=== PATIENT | female | born 1935 | race Caucasian/White ===

== ENCOUNTER → 2017-11-12 | Outpatient (CLI) | payer OTHER ==
[~2017-11-12] MED LIST: ATORVASTATIN CA40 MG PO; BACLOFEN 10MG T10 M1 PO; BACLOFEN 10MG T10 MG PO; BETASERON SC; BETASERON0.3 MG/SY1 SC; CALCIUM 600 +1 EAC1 PO; CALTRATE-600 W1 EACH PO; CLARITIN5 MG PO; CLONAZEPAM 0.50.5 M1 PO; CLONAZEPAM PO; CRESTOR20 MG PO; FLEXERIL PO; HYDROCHLOROTH12.5 M1 PO; LOPRESSOR 50 MG50 M1 PO; LOPRESSOR50 PO; LOSARTAN-HCTZ1 EACH PO; MECLIZINE HCL25 M1 PO; NEURONTIN 300300 M1 PO; NEXIUM40 MG PO; NORCO 5-325 TA1 EACH PO; PRESERVISION T1 EACH PO; TRAVATAN 0.004%5 ML OP; TRAVATAN Z2.5 ML OPHTHALMIC; UNICOMPLEX M TA1 TA1 PO; VITAMINC500 PO
--- NOTE | 2017-11-20 13:16 | S ---
[address] [address] SURGICAL PATH RPT PROCEDURE Name: MONA ARAIZA [id number] Admission: 11/12/17 Date of : 35 Discharge: Report #: [id number] Path Case #: [id number] PATHOLOGY REPORT COLLECTION DATE: 11/12/2017 RECEIVED DATE: 11/12/2017 SUBMITTING PHYS: Dr. Eric Espinoza OTHER PHYS: Dr. 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 (SEE COMMENT) COMMENT: This patient was noted to have had a prior right axilla lymph node biopsy which showed high-grade non-small cell carcinoma consistent with breast ductal primary ([id number]) at which time breast tumor profile studies showed it to be negative for ER, TX, and HER-2 protein expression with a Ki-67 proliferation of 89%. The patient (after the 2011 axillary biopsy) subsequently had neoadjuvant chemotherapy and a right modified radical mastectomy showed no infiltrating or in situ neoplasia with nine axillary lymph nodes all negative ([id number]). The current tumor is histologically identical to that seen in the prior right axillary biopsy, and because of the course of events and histologic findings, a panel of properly controlled immunohistochemical stains is again performed on A1 showing the following results and supporting the diagnosis: CK7: positive ER: negative TX: negative TTF-1: negative CK20: negative GCDFP: negative Repeat HER2 testing by image analysis is pending and will be the subject of an addendum report. Discussed with Dr. Kasper at approximately 1300 on 11/13/2017. Reviewed with Dr. Rahul Garcia who agrees with the diagnosis. (CORRIE:mgr; 11/14/2017) PATHOLOGIST: Alex Malone M.D. REPORT ELECTRONICALLY SIGNED BY: Alex Malone M.D. DATE/TIME: 11/14/2017 15:21 [place] [address] SURGICAL PATH RPT PROCEDURE Name: MONA ARAIZA Room: [facility]#: [id number] Admission: 11/12/17 Date of : 35 Discharge: Report #: [id number] Path Case #: [id number] * * * * * * * * * * * * GROSS PATHOLOGY: Received in formalin labeled "Mona Araiza, Right axilla mass" and consists of 3 harrison tissue cores ranging in size a 0.2 x 0.1 cm to 0.8 x 0.1 cm. The cold ischemic time is 5 minutes. The formalin fixation time is approximately 11 hours. The specimen is totally submitted as A1. 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 INITIAL CPT CODE(S): A; 49856, 75256, 58478, 19444, 54323, 05051, 96063 Professional services performed by [facility] at [facility], [address] [place], [place] [address], [place] [address]. Technical services performed by [facility] at [address] [place] [address], [address], [place] [address]. PROCEDURE REPORT (Order Date: 11/18/2017 00:00) COMMENT: Quantitative image analysis was performed on block A1. Please see next page for scanned image of results. (AMJ 11/20/2017) PATHOLOGIST: Sumit Austin M.D. REPORT ELECTRONICALLY SIGNED BY: Sumit Austin M.D. DATE/TIME: 11/20/2017 13:15 [facility] [address] [place] [address] PHONE: [phone] DIRECTOR: Jean-Pierre Shultz M.D. * * * END OF REPORT * * *
== END | disposition home or self-care (01) ==
LOC: M.RAD 11-05 16:03
DX: C77.3 Secondary and unspecified malignant neoplasm of axilla and upper limb lymph nodes (principal); Z88.8 Allergy status to other drugs, medicaments and biological substances; Z79.899 Other long term (current) drug therapy

== ENCOUNTER → 2017-11-27 | Outpatient (CLI) | payer OTHER ==
--- NOTE | 2017-12-12 02:26 | CON ---
[address] [address] CONSULTATION Name: MARGARITA ARAIZA Room: [facility]#: [id number] Admission: 11/27/17 Attend Phys: John Casanova MD Discharge: Date of : 35 Report #: [id number] THIS REPORT FOR: //name// CC: John Kasper DO DATE OF SERVICE: 11/27/2017 [facility] RADIATION ONCOLOGY PHONE IS [phone] REFERRING PHYSICIANS: Include Rory Valdovinos MD; Tori Cortez MD and Jarrell Kasper DO PRIMARY SITE AND HISTOPATHOLOGY: The patient has a high grade non-small cell carcinoma involving the right axilla compatible with a breast cancer primary. It was estrogen receptor negative, progesterone receptor negative. HER-2/ailyn testing was being performed and an addendum was then going to be dictated. HISTORY OF PRESENT ILLNESS: The patient is an 82-year-old woman who initially underwent breast conservation therapy for ductal carcinoma in situ that involved the right breast. She completed radiation therapy on 02/09/2002. She then had a recurrence in 2011. She had an estrogen receptor negative, progesterone receptor negative and HER2/ailyn negative right breast cancer in 2011. She had clinically and histologically positive axillary lymph nodes. So she underwent a mastectomy after neoadjuvant chemotherapy, which consisted of 4 cycles of Taxotere and Cytoxan. She did well until 09/2017. At that time, she was trying to put up a Jasmny tree and felt some discomfort in the right axilla. She noted a bleeding lesion in the axilla. She went to see Dr. Valdovinos and was referred to Dr. Kasper. She had a CT-guided biopsy of the axillary mass and the pathology revealed a high grade non-small cell carcinoma, and that was on 11/12/2017. The tumor was estrogen receptor negative and progesterone receptor negative and compatible with her breast cancer primary. She is now scheduled for a PET scan on 12/02/2017. So far, she does have some discomfort there, the pain is intermittent and goes away on its own. PAST MEDICAL HISTORY AND PAST SURGICAL HISTORY: The patient had bilateral cataract repair approximately in the year 1999. She has a history of hypertension. She has multiple sclerosis which was diagnosed around 1997. She had a hemorrhoid operation around 1996. She has a history of osteoarthritis. She had skin cancer resected from her back about 3-4 years ago. She had a cervical fusion in September 1982. She had repair of a deviated septum in 1989. She had an operation on the disk in her lower back in 1984. She had a coronary artery bypass graft, which was a quadruple bypass graft in January [address] [address] CONSULTATION Name: MARGRAITA ARAIZA PATI Room: [facility]#: [id number] Admission: 11/27/17 Attend Phys: John Casanova MD Discharge: Date of : 35 Report #: [id number] MEDICATIONS: Amantadine, atorvastatin, baclofen, clonazepam, gabapentin, losartan, hydrochlorothiazide, metoprolol, Nexium, cyclobenzaprine, aspirin, Caltrate, multivitamin, PreserVision vitamin D3. ALLERGIES: LYRICA, and TAPE. GYNECOLOGIC HISTORY: The patient is 3, para 1. She is postmenopausal. FAMILY HISTORY: Grandmother had cervical cancer. Grandfather had cancer involving the spine. An aunt had cancer. SOCIAL HISTORY: She is . She does not drink or smoke cigarettes. REVIEW OF SYSTEMS: GENERAL: The patient did not have any fevers or chills. SKIN: The patient did not have any color changes or itching. LYMPH NODES: The patient did not have any enlarged or painful glands in the neck. ENDOCRINE: The patient did not have any hot or cold intolerance. HEMATOLOGY/IMMUNOLOGY: The patient did not have any anemia. MUSCULOSKELETAL: She did not have any arthritis. HEAD AND NECK: She did not have any headaches. RESPIRATORY: She did not have any shortness of breath. CARDIOVASCULAR: She did not have any palpitations. GASTROINTESTINAL: The patient did not have any nausea. NEUROLOGIC: The patient did not have any focal weakness. PHYSICAL EXAMINATION: VITAL SIGNS: Height 5 feet 8 inches, weight 169.5 pounds, blood pressure 135/86, pulse 76, respirations 20. The patient was seen with my nurse, Charlotte Ocasio present. LYMPH NODES: She had no palpable cervical or supraclavicular lymphadenopathy. She does have a firm area in the axilla that measured about 3 x 3 cm. Otherwise, the right chest wall had no other suspicious palpable masses, the left breast has no suspicious palpable masses. GENERAL/PSYCHIATRIC: The patient was alert and oriented. EYES: Pupils were equal, round, and reactive to light. Extraocular movements were intact. HEAD, EARS, NOSE, THROAT: Mouth had no visible lesions. HEART: had a regular rate and rhythm. Lungs: were clear to auscultation. ABDOMEN: Not tender. Spleen was not palpable. Liver was at the costal margin. EXTREMITIES: Had no clubbing, cyanosis or edema. NEUROLOGIC: Cranial nerves II to XII were intact. Sensation was intact. She had 01/[address] [place] [address] CONSULTATION Name: MARGARITA ARAIZA Room: [facility]#: [id number] Admission: 11/27/17 Attend Phys: John Casanova MD Discharge: Date of : 35 Report #: [id number] strength and uses a quad cane to help with her ambulation. LABORATORY DATA: From 11/21/2017, CA 27-29 was 31.4. RADIOLOGIC DATA: She had a right breast ultrasound on 11/12/2017, which showed a solid right lateral breast mass concerning for recurrent malignancy. ASSESSMENT AND PLAN: The patient has findings consistent with a recurrent breast cancer. A PET/CT scan is pending. So I would ask her to follow up with me after the PET/CT scan. Depending on the results of the PET CT scan, the treatment options may include systemic therapy, which may consist of chemotherapy. The patient is seeing her medical oncologist, Dr. Cortez to help with that treatment modality. Depending on the PET/CT scan results, the option of surgical resection versus re-radiation can be considered to control the cancer in the axillary area. The efficacy of re-radiation can be found in the journal [employer]cot[employer] and it was entitled Re-Radiation for Local Recurrent Refractory Breast Cancer and in that study they retreated about 56 patients and local control at 2 years was about 50% and appeared to be well tolerated. The patient was asked to follow up with me after her PET/CT scan and then a plan to treat her cancer can be formulated. Thank you very much for this consult. <ELECTRONICALLY SIGNED> By: John Casanova MD 12/12/17 0226 1058 2147Dakatie Casanova MD /nt
== END ==
LOC: M.RTH 01:22
DX: C50.611 Malignant neoplasm of axillary tail of right female breast (principal); Z95.1 Presence of aortocoronary bypass graft

== ENCOUNTER → 2017-12-17 | Outpatient (CLI) | payer OTHER | LOC: M.LAB 02:58 | DX: Z79.899 Other long term (current) drug therapy (principal) ==

== ENCOUNTER → 2017-12-31 | Outpatient (CLI) | payer OTHER | LOC: M.RAD 10:17 | DX: M54.41 Lumbago with sciatica, right side (principal) ==

== ENCOUNTER → 2018-03-04 | Outpatient (CLI) | payer OTHER | LOC: M.ULTRA 10:29 | DX: N63.20 Unspecified lump in the left breast, unspecified quadrant (principal); Z85.3 Personal history of malignant neoplasm of breast ==

== ENCOUNTER → 2018-04-02 | Outpatient (CLI) | payer OTHER | LOC: M.MRI 10:38 | DX: G35 Multiple sclerosis (principal); R90.82 White matter disease, unspecified; C50.919 Malignant neoplasm of unspecified site of unspecified female breast ==

== ENCOUNTER → 2018-04-17 | Outpatient (CLI) | payer OTHER | LOC: M.RAD 11:24 | DX: M47.896 Other spondylosis, lumbar region (principal); M25.551 Pain in right hip ==

== ENCOUNTER → 2018-06-06 | Outpatient (CLI) | payer OTHER ==
--- NOTE | 2018-06-15 00:21 | ONC ---
[address] [address] RADIATION ONCOLOGY NOTE Name: MARGARITA ARAIZA Room: [facility]#: [id number] Admission: 06/06/18 Attend Phys: John Casanova MD Discharge: Date of : 35 Report #: [id number] THIS REPORT FOR: //name// CC: John Kasper DATE OF SERVICE: 06/06/2018 REFERRING PHYSICIANS: Rory Valdovinos MD; Tori Cortez MD and Jarrell Kasper DO [facility] phone is [phone] PRIMARY SITE AND HISTOPATHOLOGY: The patient has a recurrent breast cancer that involved the axilla and that was resected. Then, she went on to receive chemotherapy from Dr. Cortez consisting of Xeloda and then capecitabine, and she presents for radiation therapy, part of it may be re-radiation. INTERVAL NOTE: The patient presents to be set up for radiation therapy at this time. SOCIAL HISTORY: The patient does not smoke cigarettes. REVIEW OF SYSTEMS: RESPIRATORY: Breathing was stable. She was not short of breath. MUSCULOSKELETAL: Range of motion is good in her upper extremities. PHYSICAL EXAMINATION: with my nurse, Charlotte Ocasio, present. VITAL SIGNS: the patient weighed 163.8 pounds on 06/06/2018. She was 169.5 pounds on 11/27/2017. On 06/06/2018, blood pressure 151/65, pulse 75, respirations 20, oxygen saturation 99%. LYMPH NODES: She had no palpable cervical, supraclavicular or axial lymphadenopathy. HEART: Had a regular rate and rhythm without murmur. LUNGS: were clear to auscultation. BREASTS: Right chest wall, no suspicious palpable masses and left breast had no suspicious palpable masses. ABDOMEN: Nontender. Spleen was not palpable. Liver was at the costal margin. EXTREMITIES: No clubbing, cyanosis or edema. MEDICATIONS: Include amantadine, atorvastatin, baclofen, clonazepam, gabapentin, losartan, metoprolol, Nexium, cyclobenzaprine, aspirin, Caltrate, multivitamin, PreserVision b.i.d., vitamin D3. ASSESSMENT: [place] [address] RADIATION ONCOLOGY NOTE Name: MARGARITA ARAIZA Room: [facility]#: [id number] Admission: 06/06/18 Attend Phys: John Casanova MD Discharge: Date of : 35 Report #: [id number] 1. Recurrent breast cancer- The patient was offered re-radiation to the right chest wall and regional lymph nodes. The risks, benefits, logistics of radiation therapy were discussed with the patient in detail. She gave her witnessed informed consent to proceed with radiation therapy and she will be scheduled for simulation. 2. Hypertension- The patient takes metoprolol and that is managed by her referring physicians. 3. Vitamin D levels- The patient takes vitamin D supplements that is managed by her referring physicians. Thank you for allowing me to participate in the care of this patient. <ELECTRONICALLY SIGNED> By: John Casanova MD 06/15/18 0021 1243 0227John Casanova MD /nt
== END ==
LOC: M.RTH 03:36
DX: Z08 Encounter for follow-up examination after completed treatment for malignant neoplasm (principal); I10 Essential (primary) hypertension; E55.9 Vitamin D deficiency, unspecified; C50.911 Malignant neoplasm of unspecified site of right female breast

== ENCOUNTER 2018-11-11 12:17 | Inpatient (IN) | payer OTHER ==
[~2018-11-11] VITALS: Ht 170.2 cm; Wt 73.5 kg
[2018-11-11 12:27] VITALS: BP 139/94
[2018-11-11] MEDS ORDERED: LIDODERM1 EACH TOP (12:54)
[2018-11-11] MEDS ORDERED: CYCLOBENZAPRINE5 MG PO (12:56)
[2018-11-11] MEDS ORDERED: PRESERVISION T1 EACH PO (12:58)
[2018-11-11] MEDS ORDERED: AMANTADINE100 M1 PO (12:59)
[2018-11-11] MEDS ORDERED: ASPIR 8181 MG PO (13:00)
[2018-11-11 13:08] LABS: ABSOLUTE EOSINOPHILS 0.1 thou/uL (0.0-0.7); ABSOLUTE LYMPHOCYTES 0.6 thou/uL (0.8-5.3); ABSOLUTE MONOCYTES 0.3 thou/uL (0.0-1.2); ABSOLUTE NEUTROPHILS 3.1 thou/uL (1.6-8.1); EOSINOPHILS 1.6 %; HEMATOCRIT 37.4 % (37.0-47.0); HEMOGLOBIN 12.2 gm/dL (12.0-15.0); LYMPHOCYTES 14.5 %; MCH 31.3 pg (26.0-34.0); MCHC 32.6 g/dL (28.0-37.0); MCV 96.1 fL (80.0-100.0); MONOCYTES 8.1 %; MPV 8.2 fl. (7.2-11.1); NUCLEATED RBCS 0 /100WBC; PLATELET COUNT* 167 thou/uL (150-400); POLYS 74.8 %; RBC 3.89 mil/uL (4.20-5.00); WBC 4.1 thou/uL (4.0-11.0)
[2018-11-11 13:16] LABS: PROTIME 10.5 Seconds (9.20-11.50)
[2018-11-11 13:17] LABS: ANION GAP 7 mmol/L (7-16); BUN 17 mg/dL (7-18); CALCIUM 8.9 mg/dL (8.5-10.1); CHLORIDE 104 mmol/L (98-107); CO2 28 mmol/L (21-32); CREATININE 0.8 mg/dL (0.6-1.3); GLUCOSE 152 mg/dL (70-99); POTASSIUM 3.7 mmol/L (3.5-5.1); SODIUM 139 mmol/L (136-145)
[2018-11-11] MEDS ORDERED: NITROGLYCERIN0.4 MG SUBLING (13:23)
[2018-11-11] MEDS ORDERED: NORCO 5-325 TA1 EACH PO (13:24)
[2018-11-11] MEDS ORDERED: VITAMIN E400 UNIT PO (13:25)
[2018-11-11] MEDS ORDERED: ZYRTEC10 M2 PO (13:25)
[2018-11-11 13:28] LABS: ALBUMIN 2.9 g/dL (3.4-5.0); ALKALINE PHOSPHATASE 139 U/L (46-116); LIPASE 210 U/L (73-393); MAGNESIUM 1.9 mg/dL (1.8-2.4); NT-PRO BRAIN NAT PEPTIDE 3187 pg/mL (<300); SGOT 23 U/L (15-37); SGPT 37 U/L (30-65); TOTAL BILIRUBIN 0.3 mg/dL (<0.1-1.0); TOTAL PROTEIN 6.8 g/dL (6.4-8.2); TROPONIN-I LEVEL <0.06 ng/mL (<0.06)
[2018-11-11 15:49] VITALS: BP 126/57
[2018-11-11 16:10] VITALS: BP 143/78
--- NOTE | 2018-11-11 16:21 | EKG ---
[place] [address] ELECTROCARDIOGRAM REPORT Name: MARGARITA KRUEGER Room: [address] ADM IN M.R.#: [id number] Admission: 11/11/18 Attend Phys: Mariela Win MD Discharge: Date of : 35 Report #: [id number] THIS REPORT FOR: //name// [facility] ED Test Date: 2018-11-11 Test Time: 12:34:53 Pat Name: MARGARITA ARAIZA Department: Room: [facility] Gender: F Otolaryngology Surgeon: Loli CARDOSO RN : 1935 Requested By: Mansoor Toth Order Number: [id number] MD: Rc Caruso Measurements Intervals [place] Rate: 111 P: MD: QRS: 62 QRSD: 77 T: 43 QT: 333 QTc: 453 Interpretive Statements Atrial fibrillation Anteroseptal infarct, old, possible Minimal ST depression, anterolateral leads Compared to ECG 03/19/2015 18:29:15 ST (T wave) deviation now present Sinus bradycardia no longer present Myocardial infarct finding still present Electronically Signed On 11-11-2018 16:21:27 PATCHING MACHINE OPERATOR by Rc Caruso [email or web address] <ELECTRONICALLY SIGNED> By: Rc Caruso MD, FACC 11/11/18 1621 1234 1234 Rc Caruso MD, FACC /EPI
[2018-11-11 16:30] VITALS: BP 143/78
--- NOTE | 2018-11-11 16:55 | CON ---
[address] [address] CONSULTATION Name: MARGARITA ARAIZA Room: [address] IN M.R.#: [id number] Admission: 11/11/18 Attend Phys: Mariela Win MD Discharge: Date of : 35 Report #: [id number] THIS REPORT FOR: //name// CC: DR GONZALEZ Toth DATE OF SERVICE: 11/11/2018 HISTORY OF PRESENT ILLNESS: The patient is an 83-year-old white female who was brought to the Emergency Room today after she was noted to be in atrial fibrillation. The patient had previous coronary bypass surgery in 2001 at [facility]. Echocardiogram in 2014 showed normal ejection fraction. Previous carotid Doppler study showed less than 50% stenosis. She is not very active because of multiple sclerosis. She is confined to a walker. She was doing well until recently she had an episode of chest pressure with nausea and diaphoresis. The pressure went into her back. She felt like she needed to belch. She took a nitroglycerin that seemed to help. She came to my office today. She was noted to be in AFib with a rapid response. She denied any significant palpitations or syncope. She has been short of breath. She has had no edema. ECG shows AFib, rapid response, nonspecific ST and T-wave changes. Recent CT scan of the chest showed cardiomegaly, evidence of radiation pneumonitis. LABORATORY DATA: From last summer included creatinine 0.7. TSH 1.3. IMPRESSION AND RECOMMENDATIONS: 1. Coronary artery disease. Previous bypass surgery. I suspect her chest pain was exacerbated by her atrial fibrillation. 2. Hypertension. The patient is on an ARB, diuretic and beta annie. 3. Mild carotid stenosis. 4. Multiple sclerosis. The patient confined to a walker. 5. Breast cancer. The patient treated with surgery and chemotherapy 10 years ago. Last year, she had recurrent episode of breast cancer requiring radiation therapy. 6. Hyperlipidemia. The patient is on a statin drug. 7. Atrial fibrillation. Suspect recent onset. I would recommend anticoagulation. If the patient fails to convert, she might require cardioversion and antiarrhythmic therapy. <ELECTRONICALLY SIGNED> By: Rory Coreas MD, FACC 11/11/18 1655 1222 1242Dximena Coreas MD, FACC /nt
--- NOTE | 2018-11-11 18:49 | NUR ---
PT ADMITTED TO ROOM 224 VIA CART FROM ED AT 1610. ASSESSMENT CHARTED. VSS. CARDIZEM DRIP RUNNING AT 10ML/HR. UP WITH ASSISTANCE WITH A WALKER. PAIN RATED LOW IN NECK RELIEVED WITH FLEXERILE AND LIDOCAIN PATCH. NPO AT MIDNIGHT FOR MARCIO IN THE MORNING.
[2018-11-11 19:40] VITALS: BP 132/60
[2018-11-12] VITALS (17 sets, daily range): BP systolic 93–166; BP diastolic 41–79
--- NOTE | 2018-11-12 02:28 | NUR ---
RECIEVED REPORT AND ASSUMED CARE AT 1900. FOOD STAND MANAGER IN PLACE. VITAL SIGNS STABLE. PT UP WITH ASSIST X 1. PT DENIES ANY PAIN AT THIS TIME. ASSESSMENT COMPLETED, DISCUSSED PLAN OF CARE, PT UNDERSTANDS. BED LOCK, ALARM ON AND CALL LIGHT WITHIN REACH. FALL PRECAUTIONS IN PLACE. HOURLY ROUNDING DONE AND ALL NEEDS MET. NURSING WILL CONTINUE TO MONITOR.
[2018-11-12 05:51] LABS: HEMATOCRIT 35.8 % (37.0-47.0); HEMOGLOBIN 11.5 gm/dL (12.0-15.0); MCH 31.4 pg (26.0-34.0); MCHC 32.2 g/dL (28.0-37.0); MCV 97.7 fL (80.0-100.0); MPV 8.8 fl. (7.2-11.1); RBC 3.67 mil/uL (4.20-5.00); RDW-CV 15.5 % (10.5-14.5); WBC 4.7 thou/uL (4.0-11.0)
[2018-11-12 06:18] LABS: ALBUMIN 2.7 g/dL (3.4-5.0); CALCIUM 8.8 mg/dL (8.5-10.1); CREATININE 0.7 mg/dL (0.6-1.3); MAGNESIUM 2.2 mg/dL (1.8-2.4); POTASSIUM 3.2 mmol/L (3.5-5.1); TOTAL BILIRUBIN 0.5 mg/dL (<0.1-1.0); TOTAL PROTEIN 6.2 g/dL (6.4-8.2)
--- NOTE | 2018-11-12 10:54 | EKG ---
[place] [address] ELECTROCARDIOGRAM REPORT Name: MARGARITA KRUEGER Room: [address] ADM IN M.R.#: [id number] Admission: 11/11/18 Attend Phys: Mariela Win MD Discharge: Date of : 35 Report #: [id number] THIS REPORT FOR: //name// [facility] Test Date: 2018-11-12 Test Time: 09:06:38 Pat Name: MARGARITA ARAIZA Department: Room: [address] Gender: F Visual Design Lead: : 1935 Requested By: Rory Coreas Order Number: [id number] Reading MD: Rory Coreas Measurements Intervals [place] Rate: 69 P: ID: QRS: 46 QRSD: 78 T: 51 QT: 468 QTc: 502 Interpretive Statements Atrial flutter Low voltage, extremity leads Probable septal infarct, old Prolonged QT interval Compared to ECG 11/11/2018 12:34:53 Low QRS voltage now present Prolonged QT interval now present Atrial fibrillation no longer present Myocardial infarct finding still present Electronically Signed On 11-12-2018 10:54:19 DIRECTOR SALES by Rory Coreas [email or web address] <ELECTRONICALLY SIGNED> By: Rory Coreas MD, [facility] 11/12/18 1054 0906 Rory Coreas MD, [facility] /EPI
--- NOTE | 2018-11-12 11:12 | NUR ---
MET WITH PT AND SPOUSE TO DISCUSS HOME SITUATION/DC PLANNING. PT LIVES WITH SPOUSE. SHE IS NORMALLY INDEPENDENT AND ACTIVE. HAS WALKER AND CANE SHE USES WHEN THEY GO OUT. SHE IS ABLE TO DO SOME COOKING AND CLEANING. PT HASN'T HAD HH OR BEEN TO SNF. PLANS TO RETURN HOME WITH SPOUSE AT DC. WILL FOLLOW
--- NOTE | 2018-11-12 13:18 | TEE ---
[place] [address] TRANSESOPHAGEAL ECHOCARDIOGRAM Name: MARGARITA ARAIZA Room: [address] IN [facility]#: [id number] Admission: 11/11/18 Attend Phys: Mariela Win, Discharge: Date of : 35 Date of Service: 11/12/18 1318 Report #: [id number] THIS REPORT FOR: //name// APPROVED REPORT Study performed: 11/12/2018 11:10:33 EXAM: Transesophageal Echocardiogram Patient Location: In-Patient Room #: [facility] Status: routine BSA: 1.86 HR: 70 bpm BP: 94/67 mmHg Rhythm: Atrial Fibrillation Other Information Study Quality: Excellent Indications Atrial Fibrillation Echo Enhancing Agent Indication: Rule out Shunt Agent(s) / Amount(s) Used: Agitated Saline 20 cc Procedure After obtaining informed consent, patient underwent transesophageal echo in the [employer]. Type of Sedation : General Anesthesia Sedation was administered by Anesthesiologist. Sedation start time: 1114 Case end Time: 1130 Sedation was achieved intravenously with: Transesophageal probe was inserted and advanced into esophagus without difficulty by Rory Coreas MD, [facility]. Echo enhancement indication: R/O Septal defect. Echo enhancement agent administered: Agitated Saline The MARCIO was performed without complications. Synchronized Cardioversion acheived with 200 Joules after 1 attempt(s). Rhythm following Synchronized Cardioversion: Normal Sinus Rhythm Throughout the procedure, the blood pressure, pulse oximetry, cardiac rhythm, [place] [address] TRANSESOPHAGEAL ECHOCARDIOGRAM Name: MARGARITA ARAIZA Room: [address] IN ..#: [id number] Admission: 11/11/18 Attend Phys: Mariela Win, Discharge: Date of : 35 Date of Service: 11/12/18 1318 Report #: [id number] The patient tolerated the procedure without adverse effects. Recovery from conscious sedation was uneventful and vital signs were stable. Left Ventricle The left ventricle is normal size. There is normal LV segmental wall motion. There is normal left ventricular wall thickness. Left ventricular systolic function is normal. The left ventricular ejection fraction is within the normal range. LVEF is 55-60%. Right Ventricle The right ventricle is normal size. The right ventricular systolic function is normal. Atria Left atrium is moderately dilated. No thrombus is visualized in the left atrium or appendage. Interatrial septum is intact without evidence of ASD or PFO. Right atrium is mildly dilated. Aortic Valve Mild aortic valve sclerosis. Trace aortic regurgitation. Mild aortic stenosis. Mitral Valve The mitral valve is normal in structure. Mild mitral regurgitation. No evidence of mitral valve stenosis. Tricuspid Valve The tricuspid valve is normal in structure. Mild tricuspid regurgitation. Pulmonic Valve The pulmonary valve is normal in structure. There is no pulmonic valvular regurgitation. Great Vessels The aortic root is normal in size. Pericardium There is no pericardial effusion. <Conclusion> LVEF is 55-60%. Left [place] [address] TRANSESOPHAGEAL ECHOCARDIOGRAM Name: MARGARITA PATI Room: [address]#: [id number] Admission: 11/11/18 Attend Phys: Mariela Win, Discharge: Date of : 35 Date of Service: 11/12/181317 Report #: [id number] No thrombus is visualized in the left atrium or appendage. Mild aortic stenosis. Mild mitral regurgitation. successful cardioversion of atrial fibrillation to sinus bradycardia <ELECTRONICALLY SIGNED> By: Rory Coreas MD, FACC 11/12/181317 17 17 Rory Coreas MD, FACC /INF
--- NOTE | 2018-11-12 18:18 | NUR ---
RECEIVED REPORT FROM [facility] NURSE TAYLOR. ASSUMED CARE OF PT AROUND 0730. PT A&O X4, BUT FORGETFULL. PT PLEASANT BUT ANXIOUS ABOUT BEING IN HOSPITAL. REASSURANCE GIVEN. VSS. ADMIN SECRETARY IN PLACE. PT IN AFIB THIS AM, WENT TO SIEBEL SOLUTION ARCHITECT FOR MARCIO AND CARDIOVERSION, RETURNED TO FLOOR IN SB/SR. POST PROCEDURE VITALS CHARTED. AM ASSESSMENT AND VITALS COMPLETED CHARTED. IV TO UPPER LEFT FA INFILTRATED AND WAS REMOVED. AREA WARM AND TENDER, HOT PACK APPLIED TO PT RELEIF. NEW IV STARTED TO LOWER LEFT FA IN SIEBEL [employer]UTION ARCHITECT. AT BEDSIDE MOST OF SHIFT. PT ABLE TO EAT LUNCH AND DINNER WITHOUT ISSUE. PT HOPING TO DC TOMORROW. PT CURRENTLY RESTING IN BED. FALL PRECAUTIONS IN PLACE. CALL LIGHT IS WITHIN REACH. WILL CONTINUE TO MONITOR FOR DURATION OF SHIFT.
[2018-11-13] VITALS: BP 122/61
[2018-11-13 04:00] VITALS: BP 121/55
[2018-11-13 04:50] LABS: HEMATOCRIT 34.8 % (37.0-47.0); HEMOGLOBIN 11.3 gm/dL (12.0-15.0); MCH 31.6 pg (26.0-34.0); MCHC 32.5 g/dL (28.0-37.0); MCV 97.2 fL (80.0-100.0); MPV 8.4 fl. (7.2-11.1); RBC 3.58 mil/uL (4.20-5.00); RDW-CV 15.1 % (10.5-14.5); WBC 4.7 thou/uL (4.0-11.0)
[2018-11-13 05:23] LABS: CREATININE 0.7 mg/dL (0.6-1.3); MAGNESIUM 2.2 mg/dL (1.8-2.4)
--- NOTE | 2018-11-13 07:05 | NUR ---
VITALS WNL. SEE MAR. SEE CHARTING. FALL PRECAUIONS IN PLACE. HOURLY ROUNDING FOR SAFETY.
[2018-11-13 08:56] VITALS: BP 145/72
--- NOTE | 2018-11-13 10:16 | NUR ---
PT UP IN [place]IR WORKING WITH OT AT THIS TIME.
[2018-11-13 15:37] VITALS: BP 139/80
--- NOTE | 2018-11-13 17:36 | NUR ---
PT UP WITH PT/OT TODAY AND WAS GIVEN IV LASIX. PT TOLERATED AMBULATION AROUND HALLS AND WAS ABLE TO VOID IN BATHROOM WITH ASSISTANCE OF WALKER. WILL CONTINUET TO ASSESS.
[2018-11-13 19:50] VITALS: BP 150/67
[2018-11-14] VITALS: BP 146/71
[2018-11-14 04:00] VITALS: BP 171/66
[2018-11-14 04:46] LABS: HEMATOCRIT 35.8 % (37.0-47.0); HEMOGLOBIN 11.9 gm/dL (12.0-15.0); MCH 32.1 pg (26.0-34.0); MCHC 33.3 g/dL (28.0-37.0); MCV 96.4 fL (80.0-100.0); MPV 8.3 fl. (7.2-11.1); RBC 3.72 mil/uL (4.20-5.00); WBC 4.6 thou/uL (4.0-11.0)
[2018-11-14 04:58] LABS: CREATININE 0.7 mg/dL (0.6-1.3); MAGNESIUM 2.1 mg/dL (1.8-2.4); POTASSIUM 3.3 mmol/L (3.5-5.1)
--- NOTE | 2018-11-14 07:32 | NUR ---
VITALS WNL. SEE MAR, SEE CHARTING. FALL PRECAUTIONS IN PLACE. HOURLY ROUNDING FOR SAFETY.
[2018-11-14 08:05] VITALS: BP 174/84
--- NOTE | 2018-11-14 11:09 | NUR ---
RECEIVED REPORT FROM WILL AND ASSUMED CARE OF PT @ 0600.PT IS A/O X4,VSS,TRACING SR ON THE MONITOR.PT REMAINS ON 2L O2 NC.IV PATENT AND SALINE LOCKED.PT IS CALM AND COOPERATIVE WITH NO C/O PAIN.PT IS UP WITH SBA TO BSC/BRP.PT LEFT RESTING IN BED WITH CALL LIGHT AND FALL PRECAUTIONS IN PLACE.WILL CONTINUE TO MONITOR.
[2018-11-14 12:01] VITALS: BP 147/60
[2018-11-14] MEDS ORDERED: XARELTO20 MG PO (13:30)
[2018-11-14] MEDS ORDERED: SORINE 80 MG TA80 M1 PO (13:31)
[2018-11-14 13:53] VITALS: BP 147/60
--- NOTE | 2018-11-14 14:08 | NUR ---
Pt discharging to home today, faxed HH orders to [facility].
--- NOTE | 2018-11-14 14:34 | NUR ---
PT OK FOR DISCHARGE.PAPERWORK COMPLETED AND GIVEN TO PT.SCRIPTS GIVEN WITH EDUCATION.IV REMOVED.HEART MONITOR REMOVED AND RETURNED TO NURSING STATION.HOME HEALTH SET UP BY CASE MANAGEMENT.PT WHEELED OUT BY NURSING STAFF TO PERSONAL VEHICLE.
--- NOTE | 2018-11-14 14:50 | NUR ---
PT DC'ED PRIOR TO P.T. SESSION THIS DATE. LINSEY RIVERA, MPT
== END 2018-11-14 14:20 | disposition home health service (06) | DRG 309 ==
LOC: M.ERS 12:17 → M.2W 13:47 → M.ERS 13:47 → M.TBA-ER 13:47 → M.2W 16:13
PROVIDERS: Emergency Medicine; ADMIT Internal Medicine
PROC: B24BZZ4 Ultrasonography of Heart with Aorta, Transesophageal (ICD-10-PCS; principal; 2018-11-12)
PROC: 5A2204Z Restoration of Cardiac Rhythm, Single (ICD-10-PCS; principal; 2018-11-12)
DX: I48.91 Unspecified atrial fibrillation (principal); E44.1 Mild protein-calorie malnutrition; I50.22 Chronic systolic (congestive) heart failure; I11.0 Hypertensive heart disease with heart failure; G35 Multiple sclerosis; I25.10 Atherosclerotic heart disease of native coronary artery without angina pectoris; I80.8 Phlebitis and thrombophlebitis of other sites; Z90.11 Acquired absence of right breast and nipple; Z98.42 Cataract extraction status, left eye; Z98.41 Cataract extraction status, right eye; Z88.8 Allergy status to other drugs, medicaments and biological substances; Z85.3 Personal history of malignant neoplasm of breast; Z79.82 Long term (current) use of aspirin; Z79.899 Other long term (current) drug therapy; Z68.25 Body mass index [BMI] 25.0-25.9, adult

== ENCOUNTER → 2018-12-02 | Outpatient (CLI) | payer OTHER ==
[~2018-12-02] MED LIST changes: +AMANTADINE100 M1 PO; +ASPIR 8181 MG PO; +CYCLOBENZAPRINE5 MG PO; +LIDODERM1 EACH TOP; +NITROGLYCERIN0.4 MG SUBLING; +SORINE 80 MG TA80 M1 PO; +VITAMIN E400 UNIT PO; +XARELTO20 MG PO; +ZYRTEC10 M2 PO
== END ==
LOC: M.RAD 15:03
DX: Z12.31 Encounter for screening mammogram for malignant neoplasm of breast (principal)

== ENCOUNTER → 2019-01-08 | Outpatient (CLI) | payer OTHER | LOC: M.ULTRA 01-02 11:30 | DX: N64.4 Mastodynia (principal); C50.911 Malignant neoplasm of unspecified site of right female breast; Z90.11 Acquired absence of right breast and nipple ==

== ENCOUNTER → 2019-04-14 | Outpatient (CLI) | payer OTHER | LOC: M.RAD 14:13 | DX: M47.812 Spondylosis without myelopathy or radiculopathy, cervical region (principal); M47.816 Spondylosis without myelopathy or radiculopathy, lumbar region; M25.511 Pain in right shoulder ==

== ENCOUNTER → 2019-05-06 | Outpatient (CLI) | payer OTHER | LOC: M.RAD 15:47 | DX: M50.81 Other cervical disc disorders, high cervical region (principal); M40.292 Other kyphosis, cervical region; M50.321 Other cervical disc degeneration at C4-C5 level; M25.511 Pain in right shoulder ==

== ENCOUNTER → 2019-07-28 | Outpatient (CLI) | payer OTHER ==
--- NOTE | 2019-07-28 15:01 | CARDNUC ---
[place] [address] CARDIAC NUCLEAR IMAGING REPORT Name: MARGARITA ARAIZA Room: [facility]#: [id number] Admission: 07/28/19 Attend Phys: Rc Caruso, Discharge: Date of : 35 Date of Service: 07/28/19 1501 Report #: [id number] THIS REPORT FOR: //name// APPROVED REPORT Study performed: 07/28/2019 11:34:03 Exam: Nuclear Stress Test Indication: Chest pain, Dizziness, HX AFib. Patient Location: Out-Patient Stress Tech: Nahomi Monroe Stress Nurse: Jenna Martinez R.N. Ht: 5 ft 8 in Wt: 150 lbs BSA: 1.81 m2 BMI: 22.80 Medical History Medical History: Angina, Atrial Fibrillation, CAD non obstructive, Pre-Diabetic, , Fatigue, HTN, Hyperlipidemia, Dizziness, Multiple Sclerosis. Medications: Atorvastatin, Hyzaar, Nitrostat, Xarelto, Sotalol, ASA 81 Mg. Allergies: Escitalopram, Pregabalin, Sulfa, Actided, Lisinopril. Cardiac Risk Factors: Age, Pre-Diabetic, FHX of CAD, HTN, Hyperlipidemia, AFib, Dizziness. Previous Cardiac Procedures: None Pretest Chest Pain Characteristics: No chest pain Exercise History: Sedentary Physical Disabilities: AFib, Multiple Sclerosis. Meds Held (24 hrs): Nitrostat, Sotalol. Stress Test Details Stress Test: Pharmacologic stress testing performed using 0.4 mg of regadenoson per 5 mL given IV over 10 seconds. Reason for pharmacologic stress test: Multiple Sclerosis, AFib.. HR Resting HR: 72 bpm Max Heart Rate (APMHR): 136 bpm Max HR Achieved: 108 bpm Target HR (85% APMHR): 115 bpm % of APMHR: 79 Recovery HR: 97 bpm BP Resting BP: 189/95 [place] [address] CARDIAC NUCLEAR IMAGING REPORT Name: MARGARITA ARAIZA Room: [facility]#: [id number] Admission: 07/28/19 Attend Phys: Rc Caruso, Discharge: Date of : 35 Date of Service: 07/28/19 1501 Report #: [id number] Max BP: 142/72 mmHg ECG Resting ECG: Sinus Rhythm, nonspecific ST-T abnormalities Stress ECG: Sinus Rhythm, nonspecific ST-T abnormalities ST Change: None Arrhythmia: None Recovery ECG: Sinus Rhythm, nonspecific ST-T abnormalities Recovery ST Change: None Recovery Arrhythmia: None Clinical Reason for Termination: Completed protocol Stress Symptoms: Warmth in chest, Teeth pain, headache, Minimal ST depression changes. Exercise duration: 00 min 00 sec Exercise capacity: 1.00 METs The patient tolerated Lexiscan infusion without significant cardiac symptoms. Nurse Comments An 84 year old female with MS and walker in use, presented for sitting Lexiscan Nuclear Stress Test for CP, Dizziness and HX of AFib. Patient tolerated sitting Lexiscan well. Recovery unremarkable with PO caffeine, effective. Patient was escorted via wheelchair by staff to Nuclear Medicine for images. Patient was stable with no complaints at that time. Stress ECG Conclusion Baseline 12-lead EKG shows sinus rhythm with nonspecific ST segment depression. EKGs during and post Lexiscan infusion showed sinus rhythm and sinus tachycardia with no significant ST or T wave changes when compared to baseline. There were no stress-induced arrhythmias. NM EXAM: Myocardial Perfusion REST/STRESS Imaging Protocol: Rest Tc-99m/Stress Tc-99m 1 day Resting Data Rest SPECT myocardial perfusion imaging was performed in supine position 30 minutes following the intravenous injection of 11.3 mCi of Tc-99m Tetrofosmin. Time of rest injection: 09:45 The images were gated to evaluate regional [place] [address] CARDIAC NUCLEAR IMAGING REPORT Name: MARGARITA ARAIZA Room: [facility]#: [id number] Admission: 07/28/19 Attend Phys: Rc Caruso, Discharge: Date of : 35 Date of Service: 07/28/19 1501 Report #: [id number] left ventricular ejection fraction. Administration Route: IV Administration Site: Left AC Pharmacologic Stress Pharmacologic stress test was performed by injecting Regadenoson 0.4 mg IV push followed by the intravenous injection of 34.5 mCi of Tc-99m Sestamibi. Time of stress injection: 11:40 Administration Route: IV Administration Site: Left AC Heart Rate at time of stress injection: 108 bpm. Gated Stress SPECT was performed 40 minutes after stress injection. The images were gated to evaluate regional wall motion and calculate left ventricular ejection fraction. Prone imaging was performed. Study Quality Study: Good Artifact: No artifact Study Data At rest, the left ventricular ejection fraction was 84%.. Post stress, the left ventricular ejection was 79%.. TID = 1.14. Perfusion Normal left ventricular perfusion. Wall Motion Normal left ventricular wall motion. Nuclear Conclusion ECG Findings: non-diagnostic Clinical Findings: negative for ischemia Nuclear Findings: negative for ischemia Exercise Capacity: not assessed Left Ventricular Function: normal Risk Study: low Myocardial perfusion images show no defect to suggest infarct or ischemia. Left ventricular systolic function appears normal on gated studies. This is a low risk study. <Conclusion> Baseline 12-lead EKG shows sinus rhythm with [place] [address] CARDIAC NUCLEAR IMAGING REPORT Name: LAWMARGARITASteffany KRUEGER Room: [facility]#: [id number] Admission: 07/28/19 Attend Phys: Rc Caruso, Discharge: Date of : 35 Date of Service: 07/28/19 1501 Report #: [id number] depression. EKGs during and post Lexiscan infusion showed sinus rhythm and sinus tachycardia with no significant ST or T wave changes when compared to baseline. There were no stress-induced arrhythmias. <ELECTRONICALLY SIGNED> By: Rc Caruso MD, FACC 07/28/19 150 150 00 Rc Caruso MD, FACC /INF
== END ==
LOC: M.NUC 07-06 16:41 → M.CRD 09:00 → M.NUC 09:09
DX: I25.10 Atherosclerotic heart disease of native coronary artery without angina pectoris (principal); I25.9 Chronic ischemic heart disease, unspecified; I48.91 Unspecified atrial fibrillation; I10 Essential (primary) hypertension; E78.5 Hyperlipidemia, unspecified; Z79.899 Other long term (current) drug therapy; Z88.2 Allergy status to sulfonamides; Z88.8 Allergy status to other drugs, medicaments and biological substances

== ENCOUNTER → 2019-10-05 | Outpatient (CLI) | payer OTHER | LOC: M.RAD 12:53 | DX: J98.4 Other disorders of lung (principal); C50.411 Malignant neoplasm of upper-outer quadrant of right female breast ==

== ENCOUNTER → 2019-11-12 | Outpatient (CLI) | payer OTHER | LOC: M.RAD 14:06 | DX: M47.812 Spondylosis without myelopathy or radiculopathy, cervical region (principal); M43.22 Fusion of spine, cervical region; M43.12 Spondylolisthesis, cervical region; M48.02 Spinal stenosis, cervical region; M25.78 Osteophyte, vertebrae; M43.8X4 Other specified deforming dorsopathies, thoracic region; J90 Pleural effusion, not elsewhere classified ==

== ENCOUNTER → 2019-11-26 | Outpatient (CLI) | payer OTHER | LOC: M.MRI 12:14 | DX: M47.812 Spondylosis without myelopathy or radiculopathy, cervical region (principal); M43.12 Spondylolisthesis, cervical region; M25.78 Osteophyte, vertebrae; M48.02 Spinal stenosis, cervical region; M43.22 Fusion of spine, cervical region; Z88.8 Allergy status to other drugs, medicaments and biological substances; Z88.2 Allergy status to sulfonamides ==

== ENCOUNTER → 2019-12-22 | Outpatient (CLI) | payer OTHER | LOC: M.RAD 12-04 13:00 | DX: C50.411 Malignant neoplasm of upper-outer quadrant of right female breast (principal) ==

== ENCOUNTER → 2020-01-04 | Outpatient (CLI) | payer OTHER ==
[2020-01-04 12:28] LABS: APTT 28.2 Seconds (25.0-31.3); PROTIME 10.4 Seconds (9.20-11.50)
== END | disposition home or self-care (01) ==
LOC: M.LAB 11:59 → M.ULTRA 13:00
PROVIDERS: Internal Medicine Hematology & Oncology
DX: J90 Pleural effusion, not elsewhere classified (principal); R06.02 Shortness of breath; I11.0 Hypertensive heart disease with heart failure; I50.30 Unspecified diastolic (congestive) heart failure; I25.10 Atherosclerotic heart disease of native coronary artery without angina pectoris; I48.91 Unspecified atrial fibrillation; Z98.890 Other specified postprocedural states; Z79.899 Other long term (current) drug therapy

== ENCOUNTER → 2020-02-05 | Outpatient (CLI) | payer OTHER | LOC: M.RAD 10:43 | DX: J90 Pleural effusion, not elsewhere classified (principal); I25.10 Atherosclerotic heart disease of native coronary artery without angina pectoris; J98.11 Atelectasis ==

== ENCOUNTER → 2020-03-16 | Outpatient (CLI) | payer OTHER ==
--- NOTE | 2020-03-16 14:44 | 2DMMODE ---
[place] [address] 2 D/M-MODE ECHOCARDIOGRAM Name: MARGARITA ARAIZA Room: [facility]#: [id number] Admission: 03/16/20 Attend Phys: Lauryn Hodges RN Discharge: Date of : 35 Date of Service: 03/16/20 1442 Report #: [id number] THIS REPORT FOR: cc: Rory Valdovinos MD, David L. MD Blick, David R. MD [facility] ~ APPROVED REPORT Study performed: 03/16/2020 11:23:34 EXAM: Comprehensive 2D, Doppler, and color-flow Echocardiogram Patient Location: Out-Patient BSA: 1.79 HR: 77 bpm BP: 140/92 mmHg Other Information Study Quality: Fair Indications Atrial Fibrillation 2D Dimensions IVSd: 8.51 (7-11mm) LVOT Diam: 18.78 (18-24mm) LVDd: 40.25 mm PWd: 9.02 (7-11mm) Ascending Ao: 23.52 (22-36mm) LVDs: 20.06 (25-40mm) Aortic Root: 22.80 mm Volumes Left Atrial Volume (Systole) LA ESV Index: 15.10 mL/m2 Aortic Valve AoV Peak Christiano.: 1.84 m/s AO Peak Gr.: 13.56 mmHg LVOT Max P.31 mmHg AO Mean Gr.: 8.16 mmHg LVOT Mean P.75 mmHg LVOT Max V: 0.91 m/s AO V2 VTI: 47.21 cm LVOT Mean V: 0.61 m/s SHON (VTI): 1.44 cm2 LVOT V1 VTI: 24.48 cm Mitral Valve E/A Ratio: 4.07 [place] [address] 2 D/M-MODE ECHOCARDIOGRAM Name: MARGARITA ARAIZA Room: [facility]#: [id number] Admission: 03/16/20 Attend Phys: Lauryn Hodges RN Discharge: Date of : 35 Date of Service: 03/16/20 1442 Report #: [id number] MV Decel. Time: 161.61 ms MV E Max Christiano.: 1.47 m/s MV PHT: 46.87 ms MVA (PHT): 4.69 cm2 TDI E/Lateral E': 18.38 E/Medial E': 24.50 Medial E' Christiano.: 0.06 m/s Lateral E' Christiano.: 0.08 m/s Pulmonary Valve PV Peak Christiano.: 0.90 m/s PV Peak Gr.: 3.27 mmHg Tricuspid Valve RAP Estimate: 5.00 mmHg TR Peak Gr.: 49.56 mmHg RVSP: 54.56 mmHg PA Pressure: 54.56 mmHg Left Ventricle The left ventricle is normal size. There is normal LV segmental wall motion. There is normal left ventricular wall thickness. Left ventricular systolic function is normal. The left ventricular ejection fraction is within the normal range. LVEF is 55-60%. The left ventricular diastolic function is normal. Right Ventricle The right ventricle is normal size. The right ventricular systolic function is normal. Atria The left atrium size is normal. The right atrium size is normal. Aortic Valve Aortic valve leaflets are mildly thickened. Mild aortic regurgitation. There is mild aortic valvular stenosis. Mitral Valve Mild mitral annular calcification. The mitral valve is mildly thickened. Mild mitral regurgitation. No evidence of mitral valve stenosis. Tricuspid Valve The tricuspid valve is normal in structure. Moderate tricuspid regurgitation. estimated pa pressure 55 [place] [address] 2 D/M-MODE ECHOCARDIOGRAM Name: MARGARITA ARAIZA Room: [facility]#: [id number] Admission: 03/16/20 Attend Phys: Lauryn Hodegs RN Discharge: Date of : 35 Date of Service: 03/16/20 1442 Report #: [id number] Pulmonic Valve The pulmonary valve is normal in structure. Mild pulmonic regurgitation. Great Vessels The aortic root is normal in size. IVC is normal in size and collapses >50% with inspiration. Pericardium There is no pericardial effusion. <Conclusion> LVEF is 55-60%. There is mild aortic valvular stenosis. Mild aortic regurgitation. Mild mitral regurgitation. Moderate tricuspid regurgitation. estimated pa pressure 55 mm Hg <ELECTRONICALLY SIGNED> By: Rory Coreas MD, [facility] 03/16/20 1442 1442 1442 Rory Coreas MD, FACC /INF
== END ==
LOC: M.CRD 10:57
DX: I08.8 Other rheumatic multiple valve diseases (principal); I48.91 Unspecified atrial fibrillation

== ENCOUNTER → 2020-10-12 | Outpatient (CLI) | payer OTHER | LOC: M.CT 08:45 | PROVIDERS: ATTEND Radiology Radiation Oncology | DX: C50.411 Malignant neoplasm of upper-outer quadrant of right female breast (principal); M54.2 Cervicalgia; I70.0 Atherosclerosis of aorta; I25.10 Atherosclerotic heart disease of native coronary artery without angina pectoris; M25.78 Osteophyte, vertebrae ==

== ENCOUNTER → 2020-10-21 | Outpatient (CLI) | payer OTHER ==
--- NOTE | ~2020-10-21 | ONC ---
[address] [address] RADIATION ONCOLOGY NOTE Name: MARGARITA ARAIZA Room: [facility]#: [id number] Admission: 10/21/20 Attend Phys: John Casanova MD Discharge: Date of : 35 Report #: [id number] THIS REPORT FOR: cc: Rory Valdovinos MD, David L. MD ~ John Casanova MD DATE OF SERVICE: 10/21/2020 RADIATION ONCOLOGY FOLLOWUP NOTE REFERRING PHYSICIANS: ____ Saul, Dr. Gio Perry, Dr. Jarrell Kasper, Dr. Rc Caruso and Dr. Tori Cortez. PRIMARY SITE AND HISTOPATHOLOGY: The patient was diagnosed with a right ductal carcinoma in situ in 2001, it was estrogen receptor negative and progesterone receptor negative. She had a lumpectomy and adjuvant radiation therapy. She completed the radiation therapy on 02/09/2002. 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 She presented with a mass in the right axilla and outer upper quadrant of the right breast that was biopsied. The pathology showed a high-grade invasive ductal carcinoma that was a triple negative. She was seen by Dr. Guerin and she underwent neoadjuvant chemotherapy, which consisted of 4 cycles of Taxotere and Cytoxan. She had surgery that consistent mastectomy with axillary lymph node dissection in 03/2012 and she had a complete pathologic response. She then had a recurrent breast cancer in the right axilla. She had excision of the right axillary mass. The pathology showed benign skin with subcutaneous nodules, high-grade carcinoma consistent with breast ductal primary forming a nodule spanning 0.7 cm. All surgical margins were free of involvement. She then went to receive Xeloda with Dr. Cortez and that re-radiation of the right chest wall and regional lymph nodes. She received radiation therapy to the right chest wall and regional lymph nodes from 06/30/2018 to 08/13/2018. INTERVAL NOTE: The patient was just seen for followup appointment at the [facility] on 09/28/2020 and the patient had issues with pains on the right chest wall area. She has multiple sclerosis, which affects her gait and also results in chronic back pain and so she went on to undergo a neck and chest CT, which pretty much unremarkable, which showed moderate carotid artery calcifications, postoperative changes in the right chest wall, osteophytes in the cervical spine and postoperative changes in the mediastinum, just a mildly prominent mediastinal lymph node and surgical changes of a right mastectomy. MEDICATIONS: Included Tylenol as needed. She is on atorvastatin, vitamin D3, Flexeril, Nexium and Neurontin. She was taking hydrocodone/acetaminophen for a short while. She is also taking lidocaine patches, sotalol, vitamin B6 [place] [address] RADIATION ONCOLOGY NOTE Name: MARGARITA ARAIZA Room: [facility]#: [id number] Admission: 10/21/20 Attend Phys: John Casanova MD Discharge: Date of : 35 Report #: [id number] SOCIAL HISTORY: Cigarettes: The patient does not smoke cigarettes. REVIEW OF SYSTEMS: RESPIRATORY: The patient was not short of breath. MUSCULOSKELETAL:. She does use a cane to help with ambulation. PHYSICAL EXAMINATION: VITAL SIGNS: Her weight was 139 pounds, was 163.8 pounds on 06/06/2018. On 10/21/2020, blood pressure 173/64, pulse 54, respirations 18, temperature 98.2 degrees Fahrenheit and oxygen saturation was 97%. LYMPH NODES: She had no cervical or supraclavicular lymphadenopathy. She has some tenderness in the right chest wall area. HEART: Had a regular rate and rhythm without murmur. LUNGS: Clear to auscultation. BREAST: She did have a breast examinations since she was just examined on 09/28/2020 and at that time, the right chest wall had no suspicious palpable masses. The left breast had no suspicious palpable masses. ASSESSMENT AND PLAN: 1. History of breast cancer. There is no evidence of breast cancer at this time. So, a left mammogram was ordered in 12/2020. She was asked to follow up with me afterwards. 2. Multiple sclerosis. She was interested in getting a neurologist closer to home, so I suggested Dr. Hope in [place] if she still wishes to do that. 3. Hyperlipidemia. The patient takes Lipitor and that is managed by her referring physicians. 4. Carotid stenosis and forgetfulness. I am going to go ahead and refer her to her primary care physician to manage these issues. 5. Arthritic pains. I am going to refer her to Dr. Lesly Padilla from [facility] to help manage that. Again mammogram will be ordered in 12/2020. The patient was asked to follow up with me afterwards. Thank you for allowing me to participate in the care of this patient. By: 1614 1916John Casanova MD /nt
== END ==
LOC: M.RTH 11:15
PROVIDERS: ATTEND Radiology Radiation Oncology
DX: Z08 Encounter for follow-up examination after completed treatment for malignant neoplasm (principal); Z85.3 Personal history of malignant neoplasm of breast; E78.5 Hyperlipidemia, unspecified; G35 Multiple sclerosis

== ENCOUNTER → 2020-12-29 | Outpatient (CLI) | payer OTHER | LOC: M.RAD 11:30 | PROVIDERS: ATTEND Nurse Practitioner Family | DX: Z12.31 Encounter for screening mammogram for malignant neoplasm of breast (principal); N64.89 Other specified disorders of breast; Z90.11 Acquired absence of right breast and nipple; Z85.3 Personal history of malignant neoplasm of breast ==

== ENCOUNTER → 2021-01-20 | Outpatient (CLI) | payer OTHER | LOC: M.RTH 10:13 | PROVIDERS: ATTEND Radiology Radiation Oncology | DX: E78.5 Hyperlipidemia, unspecified (principal); G35 Multiple sclerosis; Z85.3 Personal history of malignant neoplasm of breast; Z79.899 Other long term (current) drug therapy ==

== ENCOUNTER → 2021-01-20 | Outpatient (CLI) | payer OTHER ==
--- NOTE | ~2021-01-20 | ONC ---
[address] [address] RADIATION ONCOLOGY NOTE Name: MARGARITA ARAIZA Room: [facility]#: [id number] Admission: 01/20/21 Attend Phys: Brandi Wright RN Discharge: Date of : 35 Report #: [id number] THIS REPORT FOR: cc: Joellen Padilla MD, Lin W. MD Keleti, Daniel MD ~ DATE OF SERVICE: 01/20/2021 RADIATION ONCOLOGY FOLLOWUP NOTE REFERRING PHYSICIANS: Rory Valdovinos MD; Jarrell Kasper DO; Rc Caruso MD; Tori Cortez MD [facility] phone is [phone]. PRIMARY SITE AND HISTOPATHOLOGY: The patient was diagnosed with a right ductal carcinoma in situ in 2001. It was estrogen receptor negative, progesterone receptor negative. She had a lumpectomy and adjuvant radiation therapy. She completed radiation therapy on 02/09/2002. 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 She presented with a mass in the right axilla and upper outer quadrant of the right breast that was biopsied. Pathology showed a high-grade invasive ductal carcinoma that was triple negative. She was seen by Dr. Guerin and she underwent neoadjuvant chemotherapy, which consisted of 4 cycles of Taxotere and Cytoxan. She had surgery that consisted of mastectomy with axillary lymph node dissection in 03/2012 and she had a complete pathologic response. She then had a recurrent breast cancer in the right axilla. She had excision of the right axillary mass. The pathology showed benign skin with subcutaneous nodule with high-grade carcinoma consistent with breast ductal primary forming a nodule spanning 0.7 cm. All surgical margins were free of involvement. She then went on to receive Xeloda with Dr. Cortez and re-radiation of the right chest wall and regional lymph nodes: She received radiation therapy to the right chest wall and regional lymph nodes from 06/30/2018-08/13/2018. INTERVAL NOTE: The patient denied having any palpable masses involving the left breast. She denied having any palpable masses involving the right chest wall. MEDICATIONS: Include Tylenol as needed, atorvastatin, vitamin D3, Flexeril, Nexium, and Neurontin. She was taking hydrocodone and acetaminophen for a short while. She is using lidocaine patches, sotalol, vitamin B6 and Xarelto. SOCIAL HISTORY: Cigarettes: The patient does not smoke cigarettes. REVIEW OF SYSTEMS: RESPIRATORY: The patient was not short of breath. MUSCULOSKELETAL: She does use a quad cane for [place] [address] RADIATION ONCOLOGY NOTE Name: MARGARITA ARAIZA Room: [facility]#: [id number] Admission: 01/20/21 Attend Phys: Brandi Wright RN Discharge: Date of : 35 Report #: [id number] PHYSICAL EXAMINATION: With my nurse, Charlotte Ocasio, present: VITAL SIGNS: The patient weighed 137.2 pounds. She was 139.8 pounds on 10/21/2020 and on 01/20/2021 blood pressure is 141/65, pulse 55, temperature 98.4 degrees Fahrenheit, oxygen saturation 96%. LYMPH NODES: She had no cervical or supraclavicular or axillary lymphadenopathy. HEART: Had a regular rate and rhythm without murmur. LUNGS: Clear to auscultation. BREASTS: left breast had no suspicious palpable masses. Right chest wall, no suspicious palpable masses. RADIOGRAPHIC DATA: From 12/29/2020 showed she had a screening mammogram of the left breast, which showed benign findings and annual screening mammogram was recommended. ASSESSMENT AND PLAN: 1. History of breast cancer. There is no evidence of breast cancer at this time. A left mammogram was ordered in about 1 year. She was asked to schedule a followup appointment to see me afterwards. 2. Multiple sclerosis. She was following up with a neurologist with regards to her multiple sclerosis. She was referred to Dr. Hope in [place]. 3. Hyperlipidemia. The patient takes Lipitor and that is managed by her referring physicians. The total time spent on this appointment was approximately 31 minutes. Thank you for allowing me to participate in the care of this patient. By: [id number] Casanova MD /oscar
== END ==
LOC: M.ULTRA 11:00
PROVIDERS: ATTEND Nurse Practitioner
DX: I65.23 Occlusion and stenosis of bilateral carotid arteries (principal)

== ENCOUNTER → 2021-04-13 | Outpatient (CLI) | payer OTHER ==
--- NOTE | 2021-04-13 16:37 | CARDNUC ---
[place] [address] CARDIAC NUCLEAR IMAGING REPORT Name: MARGARITA ARAIZA Room: [facility]#: [id number] Admission: 04/13/21 Attend Phys: Rc Caruso, Discharge: Date of : 35 Date of Service: 04/13/21 1637 Report #: [id number] THIS REPORT FOR: cc: Joellen Padilla MD, Lin W. MD Liston, Michael J. MD [facility] ~ APPROVED REPORT Study performed: 04/13/2021 14:05:00 Exam: Nuclear Stress Test Indication: Chest pain, Dyspnea Patient Location: Out-Patient Stress Tech: Nahomi Monroe Stress Nurse: Anabel RN NM Tech:ANA Riley Ht: 5 ft 4 in Wt: 141 lbs BSA: 1.69 m2 BMI: 24.20 Medical History Medical History: multiple sclerosis, , Atrial Fibrillation, CAD non obstructive, Carotid artery disease, CHF, Cardiomyopathy, HTN, Diabetes, Hyperlipidemia Medications: atorvastatin, hyzaar, ntg, xarelto, sotalol Allergies: multiple Cardiac Risk Factors: Age, DM, FHX of CAD, HTN, Hyperlipidemia, PVD Previous Cardiac Procedures: CABG Exercise History: Sedentary Stress Test Details Stress Test: Pharmacologic stress testing performed using 0.4 mg of regadenoson per 5 mL given IV over 10 seconds. Reason for pharmacologic stress test: physical limitation. HR Resting HR: 73 bpm Max Heart Rate (APMHR): 134 bpm Max HR Achieved: 110 bpm Target HR (85% APMHR): 113 bpm % of APMHR: 82 Recovery HR: 98 bpm BP Resting BP: 170/77 [place] [address] CARDIAC NUCLEAR IMAGING REPORT Name: MARGARITA ARAIZA Room: [facility]#: [id number] Admission: 04/13/21 Attend Phys: Rc Caruso, Discharge: Date of : 35 Date of Service: 04/13/21 1637 Report #: [id number] Max BP: 141/61 mmHg ECG Resting ECG: Atrial fibrillation, nonspecific ST-T abnormalities Stress ECG: Atrial fibrillation, nonspecific ST-T abnormalities ST Change: None Arrhythmia: None Recovery ECG: Atrial fibrillation, nonspecific ST-T abnormalities Recovery ST Change: None Recovery Arrhythmia: None Clinical Reason for Termination: Completed protocol The patient tolerated Lexiscan infusion without significant cardiac symptoms. Nurse Comments pt was pretreated with 4 mg zofran ivp for co nausea and then was given 60 mg caffeine ivp for nausea during the test Stress ECG Conclusion The baseline twelve-lead EKG shows atrial fibrillation with nonspecific ST segment depression. EKGs obtained during and post Lexiscan infusion show continued atrial fibrillation with nonspecific ST segment pression. NM EXAM: Myocardial Perfusion REST/STRESS Imaging Protocol: Rest Tc-99m/Stress Tc-99m 1 day Resting Data Rest SPECT myocardial perfusion imaging was performed in supine position 30 minutes following the intravenous injection of 10.1 mCi of Tc-99m Sestamibi. Time of rest injection: 1245 Date: 04/13/2021 The images were gated to evaluate regional wall motion and calculate left ventricular ejection fraction. Administration Route: IV Administration Site: Left Wrist Pharmacologic Stress Pharmacologic stress test was performed by injecting Regadenoson 0.4 mg IV push followed by the intravenous injection of 32.4 mCi of Tc-99[place] [address] CARDIAC NUCLEAR IMAGING REPORT Name: MARGARITA ARAIZA Room: [facility]#: [id number] Admission: 04/13/21 Attend Phys: Rc Caruso, Discharge: Date of : 35 Date of Service: 04/13/21 1637 Report #: [id number] Time of stress injection: 1425 Date: 04/13/2021 Administration Route: IV Administration Site: Left Wrist Gated Stress SPECT was performed 40 minutes after stress injection. The images were gated to evaluate regional wall motion and calculate left ventricular ejection fraction. Prone imaging was performed. Study Quality Study: Good Artifact: No artifact Study Data At rest, the left ventricular ejection fraction was 80%.. Post stress, the left ventricular ejection was 80%.. TID = 1.03. Perfusion Perfusion images obtained at rest and post Lexiscan stress show uniform uptake of the radioisotope throughout the myocardium. There were no defects to suggest infarct or ischemia. Wall Motion Normal left ventricular wall motion. Nuclear Conclusion ECG Findings: non-diagnostic Clinical Findings: negative for ischemia Nuclear Findings: negative for ischemia Exercise Capacity: not assessed Left Ventricular Function: normal Risk Study: low Perfusion study showed no defect to suggest infarct or ischemia. Left ventricular systolic function appears normal on gated studies. This is a low risk study. <Conclusion> The baseline twelve-lead EKG shows atrial fibrillation with nonspecific ST segment depression. EKGs obtained during and post Lexiscan infusion show continued atrial fibrillation with nonspecific ST segment pression. <ELECTRONICALLY SIGNED> By: Rc Caruso MD, FACC 04/13/21 1637 1637 1637 Rc Caruso MD, FACC /INF
== END ==
LOC: M.NUC 03-14 16:12
PROVIDERS: ATTEND Internal Medicine Cardiovascular Disease
DX: I25.10 Atherosclerotic heart disease of native coronary artery without angina pectoris (principal)

== ENCOUNTER 2021-07-23 15:55 | Inpatient (IN) | payer OTHER ==
[~2021-07-23] VITALS: Ht 170.2 cm; Wt 68.2 kg
[2021-07-23 16:04] VITALS: BP 185/129
[2021-07-23 16:13] LABS: URINE BILIRUBIN NEGATIVE (Negative); URINE BLOOD TRACE (Negative); URINE CLARITY CLEAR; URINE COLOR YELLOW; URINE GLUCOSE-RANDOM NEGATIVE (Negative); URINE KETONES NEGATIVE (Negative); URINE LEUKOCYTES-REFLEX NEGATIVE (Negative); URINE NITRITE-REFLEX NEGATIVE (Negative); URINE PROTEIN NEGATIVE (Negative); URINE SPECIFIC GRAVITY <= 1.005 (1.005-1.030); URINE UROBILINOGEN 0.2 E.U./dl (0.2-1.0)
--- NOTE | 2021-07-23 16:28 | NUR ---
A PUREWICK APPLIED TO PATIENT AT THIS TIME.
[2021-07-23 16:37] LABS: CALCIUM 9.1 mg/dL (8.5-10.1); CREATININE 0.7 mg/dL (0.6-1.3)
[2021-07-23 16:40] LABS: POTASSIUM 2.8 mmol/L (3.5-5.1)
[2021-07-23 16:49] LABS: TOTAL BILIRUBIN 0.9 mg/dL (<0.1-1.0); TOTAL PROTEIN 7.9 g/dL (6.4-8.2)
--- NOTE | 2021-07-23 17:22 | NUR ---
PT'S SON, JASON, CAN BE REACHED AT [phone].
[2021-07-23 17:26] LABS: ABSOLUTE BASOPHILS 0.1 thou/uL (0.0-0.2); ABSOLUTE LYMPHOCYTES 0.5 thou/uL (0.8-5.3); ABSOLUTE MONOCYTES 0.5 thou/uL (0.0-1.2); ABSOLUTE NEUTROPHILS 4.4 thou/uL (1.6-8.1); BASOPHILS 0.9 %; EOSINOPHILS 0.3 %; HEMATOCRIT 34.7 % (37.0-47.0); HEMOGLOBIN 11.5 gm/dL (12.0-15.0); LYMPHOCYTES 9.4 %; MCH 31.4 pg (26.0-34.0); MCHC 33.1 g/dL (28.0-37.0); MCV 94.7 fL (80.0-100.0); MONOCYTES 9.1 %; MPV 9.1 fl. (7.2-11.1); NUCLEATED RBCS 0 /100WBC; PLATELET COUNT* 163 thou/uL (150-400); POLYS 80.3 %; RBC 3.67 mil/uL (4.20-5.00); RDW-CV 14.7 % (10.5-14.5); WBC 5.5 thou/uL (4.0-11.0)
[2021-07-23 18:30] LABS: PHOSPHORUS* 3.1 mg/dL (2.5-4.9)
[2021-07-23 20:23] VITALS: BP 142/61
[2021-07-23 20:30] VITALS: BP 147/78
[2021-07-23] MEDS ORDERED: XALATAN2.5 ML OPHTHALMIC (22:59)
[2021-07-23] MEDS ORDERED: LIPITOR40 MG PO (23:06)
[2021-07-23] MEDS ORDERED: LOSARTAN-HCTZ1 EAC3 PO (23:15)
[2021-07-23] MEDS ORDERED: SOTALOL80 MG PO (23:18)
[2021-07-23] MEDS ORDERED: NITROSTAT0.4 MG SUBLING (23:18)
[2021-07-24 04:00] VITALS: BP 141/74
[2021-07-24 04:38] LABS: HEMOGLOBIN 11.8 gm/dL (12.0-15.0); MCH 31.3 pg (26.0-34.0); MCHC 32.8 g/dL (28.0-37.0); MCV 95.2 fL (80.0-100.0); MPV 8.3 fl. (7.2-11.1); RBC 3.78 mil/uL (4.20-5.00); RDW-CV 14.6 % (10.5-14.5)
[2021-07-24 04:52] LABS: ALBUMIN 3.1 g/dL (3.4-5.0); ALKALINE PHOSPHATASE 93 U/L (46-116); ANION GAP 9 mmol/L (7-16); BUN 7 mg/dL (7-18); CALCIUM 8.3 mg/dL (8.5-10.1); CHLORIDE 106 mmol/L (98-107); CHOLESTEROL 156 mg/dL (<200); CO2 29 mmol/L (21-32); CREATININE 0.6 mg/dL (0.6-1.3); GLUCOSE 108 mg/dL (70-99); HDL CHOLESTEROL 55 mg/dL (>40); LDL CHOLESTEROL 87 mg/dL (<100); SGOT 15 U/L (15-37); SGPT 19 U/L (30-65); SODIUM 144 mmol/L (136-145); TC:HDL 2.8 Ratio (Not establshd); TOTAL BILIRUBIN 0.7 mg/dL (<0.1-1.0); TOTAL PROTEIN 6.6 g/dL (6.4-8.2); TRIGLYCERIDE 73 mg/dL (<150); VLDL 15 mg/dL (<40)
[2021-07-24 04:54] LABS: POTASSIUM 2.4 mmol/L (3.5-5.1)
[2021-07-24 05:46] LABS: SERUM ASSESSMENT Clear
--- NOTE | 2021-07-24 05:55 | NUR ---
PT ADMITTED TO FLOOR FROM ED APPROX 2030 WITH SON AND AT BEDSIDE. PT AO X4 WITH SLOW DYSPHASIC SPEECH, NIH=9 . PT IS HAVING DIFFICULTY WITH LT LEG WHICH SHE DENIES FALL BUT KNEE IS BRUISED, SHE ATTRIBUTES PAIN TO MS. SHE IS ON CARDIZEM DRIP AT 15MG/HR FOR AFIB RVR. RATE HAS BEEN IN THE 80s. PT PASSED SWALLOW SCREEN AND TOOK PO POTASSIUM FOR CRITICAL VALUE OF 2.4 THIS AM. CALL LIGHT IN REACH OF PT FOR SAFETY
[2021-07-24 08:46] VITALS: BP 125/67
--- NOTE | 2021-07-24 09:24 | EKG ---
[place] [address] ELECTROCARDIOGRAM REPORT Name: MARGARITA ARAIZA Room: [address] IN .R.#: [id number] Admission: 07/23/21 Attend Phys: Mariela Win, Discharge: Date of : 35 Date of Service: 07/23/21 1604 Report #: [id number] THIS REPORT FOR: //name// [facility] ED Test Date: 2021-07-23 Test Time: 16:04:39 Pat Name: MARGARITA ARAIZA Department: Room: [facility] Gender: F Warehouse Logistics Manager: SERGIO : 1935 Requested By: Bertram Doshi Order Number: [id number] MD: Rory Coreas Measurements Intervals [place] Rate: 140 P: SC: QRS: 53 QRSD: 76 T: 219 QT: 273 QTc: 417 Interpretive Statements Atrial fibrillation with rapid V-rate septal infarct, old Repolarization abnormality, prob rate related Compared to ECG 11/12/2018 09:06:38 Early repolarization now present Atrial flutter no longer present Prolonged QT interval no longer present Myocardial infarct finding still present Electronically Signed On 07-24-2021 9:24:46 CDT by Rory Coreas [email or web address] <ELECTRONICALLY SIGNED> By: Rory Coreas MD, FACC 07/24/21 0924 03 1604 Rory Coreas MD, [facility] /EPI
--- NOTE | 2021-07-24 09:31 | NUR ---
CALLED PTS ON PT BEHALF. PTS SON NUMBER NOT IN CHART. PTS EVETTE HAS DEMENTIA, PER PT. PT AND PT UNABLE TO TELL THIS RN SONS PHONE NUMBER. PT STATES HER IS ABLE TO OBTAIN MEALS, AMBULATE AT HOME HIMSELF DESPITE HIS DEMENTIA.
--- NOTE | 2021-07-24 13:31 | CON ---
[address] [address] CONSULTATION Name: MARGARITA ARAIZA Room: [address] IN .R.#: [id number] Admission: 07/23/21 Attend Phys: Mariela Win MD Discharge: Date of : 35 Report #: [id number] THIS REPORT FOR: cc: Joellen Padilla MD, Lin W. MD Blick, David R. MD [facility] ~ cc: Joellen Padilla MD DATE OF CONSULTATION: 07/24/2021 CARDIOLOGY CONSULTATION HISTORY OF PRESENT ILLNESS: The patient is an 86-year-old white female who I was asked to see in the hospital today after she apparently fell. The patient has an extensive past medical history. She had previous coronary artery bypass surgery years ago. Her last nuclear stress test in April of this year showed no evidence of ischemia with normal ejection fraction. She has a history of atrial fibrillation. Echocardiogram in 2019 showed normal left ventricular function with only mild aortic stenosis. She has been chronically anticoagulated with Xarelto and has been on sotalol. She actually just saw my nurse practitioner in May of this year. She does have a history of confusion and memory loss. The patient, however, denies recent chest pain, shortness of breath, palpitations, bleeding. She denies recent vomiting, diarrhea, loss of appetite. She has not been hospitalized recently. She was brought to the Emergency Room yesterday by ambulance. The son apparently noticed that the patient was confused on the phone. PAST MEDICAL HISTORY: Otherwise, significant for back surgery; coronary bypass surgery; cataract extraction; mastectomy for breast cancer, followed by radiation therapy and chemotherapy. She has had nose surgery, trigger finger surgery. She has a history of hypertension, hyperlipidemia. CURRENT MEDICATIONS: Consists of baclofen, hydrocodone for back pain, Neurontin, losartan and HCTZ, Nexium, atorvastatin, clonazepam. She apparently was on sotalol in the past, which was discontinued. ALLERGIES: SHE HAS A PREVIOUS INTOLERANCE TO SULFA DRUGS AND LISINOPRIL. FAMILY HISTORY: Her mom had heart disease. SOCIAL HISTORY: She is . She [place] her [place] Her apparently has dementia. She denies any smoking, alcohol abuse. Uses walker to get around. REVIEW OF SYSTEMS: There is no history of stroke, asthma, kidney disease, [place] [address] CONSULTATION Name: MARGARITA ARAIZA Room: [address]#: [id number] Admission: 07/23/21 Attend Phys: Mariela Win MD Discharge: Date of : 35 Report #: [id number] chronic skin condition, psychiatric illness. Previous carotid Doppler study in January show a plaque formation. Her workup in the Emergency Room, ECG showed atrial fibrillation with rapid ventricular response rate, septal Q-waves, nonspecific ST segment changes. PHYSICAL EXAMINATION: GENERAL: Revealed an elderly, frail-appearing female, lying in bed. She appeared in no acute distress. VITAL SIGNS: Blood pressure was 160/90, pulse is 140 and irregular. She is afebrile. HEENT: She was anicteric. Conjunctivae are pink. Mucous membranes moist. NECK: Veins not appear distended. No carotid bruits. CHEST: Clear to auscultation. HEART: Irregular rhythm, no significant murmur. ABDOMEN: Soft. EXTREMITIES: Had no edema. SKIN: Cool and dry. NEUROLOGIC: Nonfocal. DIAGNOSTIC STUDIES: Her workup in the Emergency Room yesterday, she had a chest x-ray that showed atelectasis. CT scan of the head without contrast showed possible brain metastasis. LABORATORY WORK: Potassium is only 2.4, creatinine 0.6, albumin 3.1. High sensitivity troponin is 11. BNP 2422. Her white blood cell count was 5.0, hematocrit 36. Her COVID antigen stat test was negative. Urinalysis negative for protein, negative for leukocytes. IMPRESSION AND RECOMMENDATIONS: 1. Atrial fibrillation. I would aim for rate control. I would not consider cardioversion. I would change diltiazem from IV to p.o. I would discontinue sotalol. I would continue Xarelto at this time. 2. Coronary artery disease. No recent angina. I would not recommend stress testing at this time. Since the patient is on Xarelto, I would not recommend aspirin. 3. Hypertension. The patient has been on an ARB and diuretic. 4. Hyperlipidemia. The patient is on a statin drug. 5. History of multiple sclerosis. 6. Chronic back pain. 7. History of breast cancer. 8. Possible brain metastasis. Recommend Oncology consult. [address] [address] CONSULTATION Name: MARGARITA ARAIZA Room: [address]#: [id number] Admission: 07/23/21 Attend Phys: Mariela Win MD Discharge: Date of : 35 Report #: [id number] 9. Memory loss. Concerned about dementia. 10. Hypokalemia. The patient has been on diuretics. Recommend replacement. <ELECTRONICALLY SIGNED> By: Rory Coreas MD, FACC 07/24/21 1331 0753 [id number] Coreas MD, FACC /nt
--- NOTE | 2021-07-24 14:19 | NUR ---
CM spoke with Pt's son via phone. Pt resides at home with , has dementia, Pt assists with cares. Family to stay with while Pt is in the hospital. Pt has a cane and walker that she can use for mobility, normally uses for community distances only. Hx of [facility] HH. No hx of SNF. Therapies to see. CVA workup pending. Pt will likely need SNF v ARU at dc. Son hoping to get Pt and to agree with [facility] in the near future. CM following for dc needs.
--- NOTE | 2021-07-24 16:07 | NUR ---
teleneuro at pts bedside via household worker at this time
[2021-07-24 16:20] VITALS: BP 127/63
--- NOTE | 2021-07-24 16:44 | NUR ---
UPDATED PTS SON JASON ON PT, MRI RESULTS PER PT REQUEST.
--- NOTE | 2021-07-24 17:11 | NUR ---
updated son. he requests call when plan for transfer is known. records faxed to [facility] transfer center. dr metzger updated.
--- NOTE | 2021-07-24 17:55 | NUR ---
PT SAT IN CHAIR APPROX 2 HOURS COLLECTIVELY TODAY. HAS EXPRESSIVE APHASIA. PT ENCOURAGED TO SAY WHAT SHE NEEDS TO SAY IN HER HEAD FIRST, THEN IS ABLE TO OFTEN ARTICULATE WORDS BETTER. PTS VISITED WITH NEIGHBOR. PT STATES HER SON, JASON IS HER DPOA AND THE PAPERWORK IS AT HER BANK. PLAN IS TO TX TO AN ACCEPTING FACILITY. UNKNOWN FACILITY AT THIS TIME. [employer] WORKING ON THIS CURRENTLY. PT IS A&OX4. ROOM AIR. A FIB RATE CONTROLLED ON PO DILTIAZEM. ASSIST X1 TO CHAIR WITH WALKER AND GB. PT TOO UNSTEADY TO WALK TO BR AT THIS TIME.
[2021-07-24 19:45] VITALS: BP 133/56
[2021-07-24] MEDS ORDERED: CARDIZEM60 MG PO (22:40)
[2021-07-25] VITALS: BP 129/78
--- NOTE | 2021-07-25 00:47 | NUR ---
PT AO X2, SELF AND PLACE SHE HAS DYSPHASIA AND IS VERY SLOW WITH ARTICULATION. SHE DENIES PAIN AT THIS TIME. PT IS AFIB ON MONITOR AND WAS TAKEN OFF CARDIZEM DRIP TODAY AND IS CONTROLED ON PO MEDS. PT OXYGEN WAS LOW ON RA SO 3L O2 WAS APPLIED TO GET SAT > 92% BP ABD ROUND AND DISTENDED BUT SOFT. LAST KNOWN BM UNKNOWN. PT HAS PUREWICK IN PLACE WITH CLEAR YELLOW URINE IN CANISTER. PT SON WAS NOTIFIED BY PHONE OF TRANSFER TO [facility] FOR NEUROSURG CONSULT. [facility] CALLED WITH ROOM AND NURSE INFO. APPROPRIATE PAPERWORK WAS FAXED TO [facility], [employer] FILLED OUT AND REPORT CALLED TO NURSE, TRANSPORT ARRIVED AND WAS GIVEN REPORT. PT LEFT IN STABLE CONDITION VIA EMS.
[2021-07-25 07:08] LABS: GLYCOHEMOGLOBIN (HGB A1C) 5.8 % (4.8-5.6)
--- NOTE | 2021-07-25 08:58 | NUR ---
ORDERS RECEIVED, PATIENT DC'ED PRIOR TO P.T. EVALUATION. LINSEY RIVERA, MPT
== END 2021-07-25 00:25 | disposition short-term general hospital (02) | DRG 54 ==
LOC: M.ERS 15:55 → M.ORTHSURG 16:57 → M.TBA-ER 16:57 → M.ORTHSURG 20:30
PROVIDERS: Family Medicine; Internal Medicine; ADMIT Internal Medicine; ATTEND Internal Medicine
DX: C79.31 Secondary malignant neoplasm of brain (principal); G93.6 Cerebral edema; R47.01 Aphasia; Z20.822 Contact with and (suspected) exposure to COVID-19; F41.9 Anxiety disorder, unspecified; F03.90 Unspecified dementia, unspecified severity, without behavioral disturbance, psychotic disturbance, mood disturbance, and anxiety; E78.00 Pure hypercholesterolemia, unspecified; E87.6 Hypokalemia; I10 Essential (primary) hypertension; E78.5 Hyperlipidemia, unspecified; I48.91 Unspecified atrial fibrillation; G89.29 Other chronic pain; N23 Unspecified renal colic; M54.9 Dorsalgia, unspecified; I25.10 Atherosclerotic heart disease of native coronary artery without angina pectoris; G35 Multiple sclerosis; Z90.11 Acquired absence of right breast and nipple; Z98.42 Cataract extraction status, left eye; Z98.41 Cataract extraction status, right eye; Z88.8 Allergy status to other drugs, medicaments and biological substances; Z95.1 Presence of aortocoronary bypass graft; Z82.49 Family history of ischemic heart disease and other diseases of the circulatory system; Z91.14 Patient's other noncompliance with medication regimen; Z85.3 Personal history of malignant neoplasm of breast